=== PATIENT | female | born 1975 | race Asian ===

== ENCOUNTER 2019-11-28 08:51 | Emergency (ER) | payer BC ==
[~2019-11-28] VITALS: Ht 157.5 cm; Wt 51.3 kg
[2019-11-28 09:07] VITALS: Ht 157.5 cm; Wt 51.3 kg
[2019-11-28 10:55] VITALS: BP 115/58
== END 2019-11-28 10:55 | disposition home or self-care (01) ==
LOC: ED 08:51
DX: J45.901 Unspecified asthma with (acute) exacerbation (principal); Z88.6 Allergy status to analgesic agent
CPT/HCPCS: J7620; Q0092

== ENCOUNTER 2020-03-19 16:47 | Emergency (ER) | payer BC ==
[~2020-03-19] VITALS: Ht 157.5 cm; Wt 49.9 kg
[2020-03-19 17:22] VITALS: Ht 157.5 cm; Wt 49.9 kg
[2020-03-19 17:41] LABS: BASOPHIL % 0.2 % (0-2); PLATELET COUNT 254 x10^3mcL (130-400); RED CELL DISTRIBUTION WIDTH 13.3 % (11.5-14.5)
[2020-03-19 17:50] LABS: CALCIUM 9.3 mg/dL (8.5-10.1); CARBON DIOXIDE 25.6 mmol/L (21-32); CHLORIDE SERUM 105 mmol/L (98-107); CREATININE SERUM 0.9 mg/dL (0.6-1.0); GFR1 > 60 mL/min; GLUCOSE SERUM 108 mg/dL (74-106); POTASSIUM SERUM 3.4 mmol/L (3.5-5.1); SODIUM SERUM 142 mmol/L (136-145)
[2020-03-19 17:58] LABS: ALBUMIN 3.7 g/dL (3.4-5.0); ALKALINE PHOSPHATASE 55 U/L (46-116); ALT/SGPT 25 U/L (14-59); AST/SGOT 16 U/L (15-37); BILIRUBIN TOTAL 0.42 mg/dL (0.20-1.00); TOTAL PROTEIN, SERUM 7.6 g/dL (6.4-8.2)
[2020-03-19 18:37] VITALS: BP 103/56
== END 2020-03-19 18:37 | disposition home or self-care (01) ==
LOC: ED 16:47
PROVIDERS: Specialist
DX: J45.909 Unspecified asthma, uncomplicated (principal); Z88.6 Allergy status to analgesic agent
CPT/HCPCS: 36415; 83880; 87804; Q0092

== ENCOUNTER 2020-03-22 21:11 | Emergency (ER) | payer BC ==
[~2020-03-22] VITALS: Ht 162.6 cm; Wt 59.0 kg
[2020-03-22 22:13] VITALS: Ht 162.6 cm; Wt 59.0 kg
[2020-03-22 23:06] VITALS: BP 124/56
== END 2020-03-22 23:06 | disposition home or self-care (01) ==
LOC: ED 21:11
DX: F41.1 Generalized anxiety disorder (principal); Z88.6 Allergy status to analgesic agent
CPT/HCPCS: Q0092